=== PATIENT | female | born 1945 | race Caucasian/White ===

== ENCOUNTER → 2019-03-07 | Outpatient (CLI) | payer MEDICARE, BC ==
[~2019-03-07] MED LIST: CITALOPRAM HYDR20 MG PO; NO HOME MEDICATIONS
[2019-03-07 17:36] LABS: BASO # 0.1 (0.0-0.2); BASO % 1.1 % (0.0-2.0); EOS # 0.2 (0.0-0.7); EOS % 3.6 % (0-4.0); GRAN # 1.8 (1.4-6.5); GRAN % 39.8 % (42.2-75.2); HEMOGLOBIN 12.1 g/dl (12.5-16.0); LYMPH # 1.8 (1.2-3.4); MEAN CELL VOLUME 99 fl (80.0-100.0); MEAN CORPUSCULAR HEMOGLOBIN 33 pg (27.0-31.0); MEAN CORPUSCULAR HGB CONC 33 g/dl (33.0-37.0); MEAN PLATELET VOLUME 10.1 fl (7.4-10.4); MONO # 0.6 (0.1-0.6); MONO % 14.3 % (1.7-9.3); PLATELET COUNT 336 K/mm3 (130-400); RED BLOOD COUNT 3.72 M/mm3 (4.10-5.30); REDCELL DISTRIBUTION WIDTH-CV 14.6 % (11.5-14.5)
[2019-03-07 17:43] LABS: HEMATOCRIT 36.8 % (37.0-47.0)
[2019-03-07 17:44] LABS: ALBUMIN 4.1 gm/dL (3.5-5.0); BILIRUBIN,TOTAL 0.7 mg/dL (0.0-1.0); C-REACTIVE PROTEIN 0.9 mg/dL (0.0-0.9); CALCIUM 9.9 mg/dL (8.4-10.2); CREATININE, serum 0.6 (0.52-1.25); TOTAL PROTEIN 7.4 gm/dL (6.4-8.2)
[2019-03-07 17:58] LABS: ERYTHROCYTE SEDIMENTATION RATE 16 mm/hr (0-30)
[2019-03-07 18:12] LABS: THYROID STIMULATING HORMONE 1.05 uIU/mL (0.465-4.680)
== END ==
LOC: COL.LAB 16:53
PROVIDERS: Physician Assistant
DX: R10.10 Upper abdominal pain, unspecified (principal)